=== PATIENT | male | born 1950 | race Caucasian/White ===

== ENCOUNTER 2024-03-08 07:17 | Day surgery (SDC) | payer MEDICARE, BC ==
[~2024-03-08] VITALS: Ht 177.8 cm; Wt 85.0 kg
[2024-03-08] VITALS (14 sets, daily range): BP systolic 114–137; BP diastolic 61–76; PULSE 58–84; TEMP 97–98.4
[~2024-03-08 07:17] MED LIST: Celecoxib 400 MG PREOP X1 PO SCH; LR 1,000 ML IV SCH; Meclizine 25 MG TAB PO SCH; Pregabalin 150 MG CAP PREOP X1 PO SCH; oxyCODONE ER (12-HR) 20 MG TAB PREOP X1 PO SCH
[2024-03-08] MEDS ORDERED: Midazolam 2 MG/2 ML VIAL ONE (08:50)
[2024-03-08] MEDS ORDERED: MORPHINE SULFATE 0.5 MG/ML ONE (08:50)
[2024-03-08] MEDS ORDERED: Lidocaine PF 2% (20 MG/ML) 5 ML VIAL ONE (08:51)
[2024-03-08] MEDS ORDERED: Naloxone 0.4 MG/ML VIAL IV PRN ×3 (10:00→10:15)
[2024-03-08] MEDS ORDERED: Promethazine 50 MG/ML 1 ML VIAL IM PRN (10:00)
[2024-03-08] MEDS ORDERED: Morphine 4 MG/ML VIAL IV PRN ×2 (10:00→10:15)
[2024-03-08] MEDS ORDERED: Promethazine 25 MG TAB PO PRN (10:00)
[2024-03-08] MEDS ORDERED: oxyCODONE 5 MG TAB PO PRN (10:00)
[2024-03-08] MEDS ORDERED: Tranexamic Acid 1,000 MG/10 ML VIAL ONE (10:07)
[2024-03-08] MEDS ORDERED: HYDROmorphone 1 MG/1 ML SYRINGE [PACU/SDC ONLY] IV PRN (10:15)
[2024-03-08] MEDS ORDERED: diphenhydrAMINE 25 MG CAP PO PRN (10:15)
[2024-03-08] MEDS ORDERED: fentaNYL 50 MCG/ML 1 ML SYRINGE/VIAL [PACU/SDC ONLY] IV PRN (10:15)
[2024-03-08] MEDS ORDERED: Ondansetron 4 MG/2 ML VIAL IV PRN ×2 (10:15)
[2024-03-08] MEDS ORDERED: Meperidine 50 MG/ML 1 ML VIAL IV PRN (10:15)
[2024-03-08] MEDS ORDERED: Morphine 2 MG/1 ML VIAL [PACU/SDC ONLY] IV PRN (10:15)
[2024-03-08] MEDS ORDERED: traMADol 50 MG TAB PO PRN (10:15)
[2024-03-08] MEDS ORDERED: [UNRECOGNIZED DRUG - OTHER] IT SCH (10:15)
[2024-03-08] MEDS ORDERED: droPERidol 2.5 MG/ML 2 ML VIAL IV PRN (10:15)
[2024-03-08] MEDS ORDERED: Topical Skin Adhesive 1 EACH (1 ML) TOP ONE (10:34)
[2024-03-08] MEDS ORDERED: Acetaminophen 500 MG TAB PO SCH (10:56)
[2024-03-08] MEDS ORDERED: ceFAZolin 2 G in Water For Injection,Sterile 20 ML IV SCH (13:56)
[2024-03-08] MEDS ORDERED: COMPLETE MULTI1 TAB PO (15:30)
[2024-03-08] MEDS ORDERED: MAG-OX 400400 MG/TAB PO (15:32)
[2024-03-08] MEDS ORDERED: CALCIUM PO (15:32)
[2024-03-08] MEDS ORDERED: FOLIC ACID 11 MG/TA1 PO (15:33)
[2024-03-08] MEDS ORDERED: VITAMINC1000TA PO (15:33)
[2024-03-08] MEDS ORDERED: IRON TABLETS325 MG PO (15:33)
[2024-03-08] MEDS ORDERED: OSCAL 500 TAB500 MG PO (15:34)
[2024-03-08] MEDS ORDERED: MOTRIN 200200 MG/TAB PO (15:36)
[2024-03-08] MEDS ORDERED: TYLENOL 500MG500 MG PO (16:03)
[2024-03-08] MEDS ORDERED: CELEBREX 200MG200 MG PO (16:03)
[2024-03-08] MEDS ORDERED: ROXICODONE 55 MG/TAB PO (16:03)
[2024-03-08] MEDS ORDERED: ASPI325T6 PO (16:03)
[2024-03-08] MEDS ORDERED: ULTRAM 50MG TAB50 MG PO (16:03)
--- NOTE | 2024-03-08 20:43 | NUR ---
MEDICATED WITH HS MEDS INCLUDING OXYCODONE 10MG PO FOR RT KNEE PAIN.
--- NOTE | 2024-03-08 21:00 | NUR ---
PT AMBULATES IN HALLWAY WITH GAIT BELT/WALKER AND ONE ASSIST DOES WELL. REPORTS NO VOID SINCE SURGERY. ATTEMPTS TO VOID IN BATHROOM WITHOUT SUCCESS. REMAINS UP IN RECLINER, ENCOURAGED TO DRINK PITCHER OF WATER AND TRY AGAIN TO VOID. PT VERBALIZED UNDERSTANDING.
--- NOTE | 2024-03-08 22:00 | NUR ---
PT ASSISTED TO BATHROOM, ABLE TO VOID. ASSISTED TO BED, IMMOBILIZER PLACED TO RLE. INT TO RT HAND IV ANTIBIOTIC GIVEN WITHOUT PROBLEM. ICE PACK REPLACED. SCDS ON.
--- NOTE | 2024-03-08 22:38 | NUR ---
TRAMADOL 100MG PO FOR RT KNEE PAIN 5/10.
[2024-03-09 00:03] VITALS: BP_SYST 114
--- NOTE | 2024-03-09 03:26 | NUR ---
ASSISTED TO BATHROOM, VOIDS AND BACK TO BED. IMMOBILIZER ON RLE. SCHEDULED ES TYLENOL GIVEN.
[2024-03-09 03:46] VITALS: BP 134/71; PULSE 77; TEMP 98.3
[2024-03-09 04:52] VITALS: BP_SYST 134
[2024-03-09 06:35] LABS: HEMOGLOBIN 12.3 g/dl (13.5-18.0)
[2024-03-09 06:40] LABS: HEMATOCRIT 35.5 % (42.0-52.0)
[2024-03-09 07:40] VITALS: BP 120/64; PULSE 73; TEMP 98.4
[2024-03-09] MEDS ORDERED: Celecoxib 200 MG CAP PO SCH (09:00)
[2024-03-09 09:07] VITALS: BP_SYST 120
--- NOTE | 2024-03-09 10:22 | NUR ---
drive worker met with pt to discuss discharge planning. He reports to live alone on [place] in [place]. He sees Dr. Butt for PCP needs and obtains medications from [facility] with no issues. He reports his daughter, Whitney [phone] as his contact. He does not have a DPOA-HC. Pt reports to be independent with ADLS and uses no DME, but has a FWW and cane. SW discussed PT/OT reccomendations of HH vs OP PT. He would like HH and SW provided Medicare.gov list. He intends to review this with his daughter shortly snd inform SW on his choice. Discharge Plan: home with [facility]IRA
--- NOTE | 2024-03-09 11:13 | NUR ---
PT HAS BEEN RESTING IN CHAIR, ALERT AND ORIENTEDX4. RATES PAIN BETWEEN 4-6/10. PT HAS GOTTEN PAIN MEDS. CHANGED KNEE DRESSING TO [employer] AND PUT ON LEO HOSE BILATERALLY. ASSESSED AND GAVE MORNING MEDS. PT HAS DISCHARGE ORDERS. WAITING ON DAUGHTER TO PICK HIM UP. NO OTHER COMPLAINTS AT THIS TIME. CALL LIGHT WITHIN REACH.
[2024-03-09 11:19] VITALS: BP 118/67; PULSE 79; TEMP 98.6
--- NOTE | 2024-03-09 12:10 | NUR ---
Pt called this SW and informed her he would like to do OP PT at [facility] and he has someone who should be able to. He reports to already be established there. ALEKSANDAR informed pt that if this does not work out, then he can set this up with his PCP. Pt verbalized understanding and had no needs. Discharge Plan: home with OP PT
--- NOTE | 2024-03-09 12:25 | NUR ---
PT HAD DISCHARGE ORDERS. WENT OVER DISCHARGE PAPERWORK WITH PT. IV WAS D/C'D THIS MORNING. WENT OVER DISCHARGE PAPERWORK WITH DAUGHTER. PCTLENO ESCORTED PT OUT TO DAUGHTERS VEHICLE.
--- NOTE | 2024-03-09 13:28 | NUR ---
Initial visit; Patient thanked [employer] for looking in on him and offerin Spiritual Care and to keep him in her prayers as he leaves the hospital. Patient a very pleasant gentleman.
== END 2024-03-09 12:30 | disposition home or self-care (01) ==
LOC: SDCO 07:17 → SURG 12:00 → SDCO 03-09 12:30 → SURG 03-09 12:30
PROVIDERS: Physician Assistant
DX: M17.11 Unilateral primary osteoarthritis, right knee (principal)
CPT/HCPCS: OP; A6197; A9284; C1713; C1776; J0688; J0690; J2250; J2274; J2405; J2704; J7120